=== PATIENT | female | born 2000 | race Caucasian/White ===

== ENCOUNTER 2021-12-01 16:58 | Emergency (ER) | payer OTHER, SELFPAY ==
[2021-12-01] VITALS (8 sets, daily range): BP systolic 105–112; BP diastolic 60–75; PULSE 68–88; RESP 17; TEMP 36.3; O2SAT 96–99; BMI 25.6
[2021-12-01 18:49] LABS: Add Manual Diff / Slide Review NO; Basophils Absolute Auto 100 /uL (0-100); Basophils Percent Auto 0.7 % (0-2); Eosinophils Absolute Auto 0 /uL (0-450); Eosinophils Percent Auto 0.4 % (2-4); Hematocrit 37.2 % (36-46); Hemoglobin 12.3 g/dL (12.0-16.0); Lymphocytes Absolute Auto 2200 /uL (1100-4500); Lymphocytes Percent Auto 25.6 % (25-40); Mean Corpuscular HGB Conc 33.2 % (30-36); Mean Corpuscular Hemoglobin 26.5 PG (26-34); Mean Corpuscular Volume 79.8 fL (80-100); Monocytes Absolute Auto 500 /uL (0-900); Monocytes Percent Auto 5.6 % (3-14); Neutrophils Absolute Auto 5800 /uL (1500-7000); Neutrophils Percent Auto 67.7 % (50-75); Platelet Count 288 X10^3/uL (150-400); Red Blood Cell Count 4.66 X10^6/uL (4.0-5.2); Red Cell Distribution Width 13.4 % (11.6-14.8); White Blood Cell Count 8.5 X10^3/uL (4.5-11.0)
[2021-12-01 19:06] LABS: BUN Creatinine Ratio 17.1 (6-22); Blood Urea Nitrogen 12 mg/dL (7-17); Calcium 8.8 mg/dL (8.4-10.2); Carbon Dioxide 21 mmol/L (22-32); Chloride 108 mmol/L (98-107); Estimated Glomerular Filt Rate > 60.0 mL/min (>60); Glucose 95 mg/dL (70-100); HEMOLYSIS < 15 (0-50); Potassium 3.7 mmol/L (3.4-5.1); Sodium 141 mmol/L (137-145)
--- NOTE | 2021-12-01 21:45 | PC.NURSE ---
Pt reports breakthrough bleeding with contraceptive implant, concerned about clots. Started feeling dizzy at approximately 1200 today.
--- NOTE | 2021-12-01 22:32 | PC.NURSE ---
Pt educated on indications for urine specimen r/t vaginal bleeding, pt declines providing specimen. Dr Cohen notified.
[2021-12-01 23:04] LABS: HCG Quantitative /Beta subunit < 2.4 mIU/mL
[2021-12-02] VITALS: PULSE 74; O2SAT 99
--- NOTE | 2021-12-02 00:03 | ED_ITS ---
HPI - General Adult General Chief complaint: Vaginal Bleeding Stated complaint: excessive bleeding, Vaginal Time Seen by Provider: 12/01/21 22:30 Source: patient Mode of arrival: Ambulatory History of Present Illness HPI narrative: 21-year-old with Nexplanon control implant in place for the last 6 years with appropriate replacement timing presents with vaginal bleeding. She started bleeding yesterday that seemed relatively heavy and then today was having have enough bleeding that she was noting quarter-size clots and bleeding through a maxi tampon in an hour. That level of bleeding has been waxing and waning through the day. She notes that she has not been eating or drinking because she simply did not get around to it today had a slight dizzy episode and her core minute requested that she come to the emergency room for further evaluation. She does note that she has had vaginal bleeding intermittently over the last 6 years sometimes moderately heavy with clots sometimes spotting for a month. She is due to have the Nexplanon exchanged in about 3 months. She describes no fevers, cough, chills no vaginal discharge no back pain or flank pain. Related Data Home Medications Medication Instructions Recorded Confirmed etonogestrel 68 mg subdermal 68 mg SUBDERMAL 12/01/21 implant (Nexplanon) Allergies Allergy/AdvReac Type Severity Reaction Status Date / Time No Known Drug Allergies Allergy Verified 12/01/21 17:14 Review of Systems Review of Systems Narrative: Remainder of complete review of systems is otherwise unremarkable except for that included in the HPI. Patient History Social History Smoking Status: Current every day smoker Smoking Status: Current every day smoker tobacco type: vaping alcohol intake frequency: other Substance Use Type: does not use Exam Initial Vital Signs Initial Vital Signs: Vital Signs Temperature 97.4 F L 12/01/21 17:12 Pulse Rate 88 12/01/21 17:12 Respiratory Rate 17 12/01/21 17:12 Blood Pressure 105/60 12/01/21 17:12 Pulse Oximetry 97 12/01/21 17:12 General: Healthy appearing, in no acute distress. Able to give a complete and coherent history. Well-nourished well-developed Respiratory: Lungs are clear to auscultation, no wheezing no rales no rhonchi. Full and symmetrical air movement Cardiac: Regular rate and rhythm no murmurs no bruits Abdomen: Soft, nontender, good bowel tones, no flank pain Skin: Warm and dry, no rashes Extremities: No trauma, well perfused Psych: Cooperative, appropriate insight and affect Bedside ultrasound Uterus is homogeneous measures 4 x 5 cm with endometrial lining as small as 0.2 cm and as thick as 0.7 cm with no obvious clots appreciated Course Orders Ordered: ED Orders 12/01/21 18:40 Basic Metabolic Panel Stat Complete Blood Count AUTO DIFF Stat HCG Quantitative /Beta subunit Stat Type and Screen Stat Vital Signs Vital signs: Vital Signs - 8 hr 12/01/21 17:12 12/01/21 20:33 12/01/21 20:34 Temperature 97.4 F L Pulse Rate 88 73 Respiratory Rate 17 Blood Pressure 105/60 112/75 Pulse Oximetry 97 99 99 12/01/21 21:00 12/01/21 21:30 12/01/21 22:00 Temperature Pulse Rate 74 85 68 Respiratory Rate Blood Pressure Pulse Oximetry 99 99 98 12/01/21 22:30 12/01/21 23:01 Temperature Pulse Rate 70 81 Respiratory Rate Blood Pressure Pulse Oximetry 99 96 Medical Decision Making Lab Data Result diagrams: 12/01/21 18:40 12/01/21 18:40 Labs: Lab Results 12/01/21 12/01/21 12/01/21 Range/Units 18:40 18:40 18:40 WBC 8.5 (4.5-11.0) X10^3/uL RBC 4.66 (4.0-5.2) X10^6/uL Hgb 12.3 (12.0-16.0) g/dL Hct 37.2 (36-46) % MCV 79.8 L (80-100) fL MCH 26.5 (26-34) PG MCHC 33.2 (30-36) % RDW 13.4 (11.6-14.8) % Plt Count 288 (150-400) X10^3/uL Neut % (Auto) 67.7 (50-75) % Lymph % (Auto) 25.6 (25-40) % [place] % (Auto) 5.6 (3-14) % Eos % (Auto) 0.4 L (2-4) % Baso % (Auto) 0.7 (0-2) % Neut # (Auto) 5800 (4880-2990) /uL Lymph # (Auto) 2200 (1990-0869) /uL [place] # (Auto) 500 (0-900) /uL Eos # (Auto) 0 (0-450) /uL Baso # (Auto) 100 (0-100) /uL Sodium 141 (137-145) mmol/L Potassium 3.7 (3.4-5.1) mmol/L Chloride 108 H (98-107) mmol/L Carbon Dioxide 21 L (22-32) mmol/L BUN 12 (7-17) mg/dL Creatinine 0.70 (0.52-1.04) mg/dL Estimated GFR > 60.0 (>60) mL/min BUN/Creatinine Ratio 17.1 (6-22) Glucose 95 (70-100) mg/dL Calcium 8.8 (8.4-10.2) mg/dL HCG, Quant mIU/mL Blood Type O Positive Antibody Screen Negative 12/01/21 Range/Units 18:40 WBC (4.5-11.0) X10^3/uL RBC (4.0-5.2) X10^6/uL Hgb (12.0-16.0) g/dL Hct (36-46) % MCV (80-100) fL MCH (26-34) PG MCHC (30-36) % RDW (11.6-14.8) % Plt Count (150-400) X10^3/uL Neut % (Auto) (50-75) % Lymph % (Auto) (25-40) % [place] % (Auto) (3-14) % Eos % (Auto) (2-4) % Baso % (Auto) (0-2) % Neut # (Auto) (8616-1779) /uL Lymph # (Auto) (8502-5107) /uL [place] # (Auto) (0-900) /uL Eos # (Auto) (0-450) /uL Baso # (Auto) (0-100) /uL Sodium (137-145) mmol/L Potassium (3.4-5.1) mmol/L Chloride (98-107) mmol/L Carbon Dioxide (22-32) mmol/L BUN (7-17) mg/dL Creatinine (0.52-1.04) mg/dL Estimated GFR (>60) mL/min BUN/Creatinine Ratio (6-22) Glucose (70-100) mg/dL Calcium (8.4-10.2) mg/dL HCG, Quant < 2.4 mIU/mL Blood Type Antibody Screen MDM Narrative Medical decision making narrative: 21-year-old woman with vaginal bleeding with a Nexplanon implant in place. She is not , not orthostatic and bedside ultrasound does not suggest significant uterine pathology. I suspect that this is simply withdrawal bleed ing in setting of mild dehydration and being hungry. Reassurance is given. I do not think that additional workup is required. I did suggest that she talk with her doctor with the next time the Nexplanon needs to be replaced to see if she is still having bleeding indications and to see if there is any additional indication for formal transvaginal uterine ultrasound. All of this is reviewed with her in detail. She is safe for home discharge Discharge Plan Departure Patient Disposition: Home Clinical Impression: Vaginal bleeding Instructions: DI for Vaginal Bleeding Activity Restrictions/Additional Instructions: Thank you for coming in today and for being so patient with your long wait Your blood work was very reassuring, you are not significantly anemic, meaning your body is keeping up with the blood your losing. You are not so this is not a complication causing your bleeding. There is no sign of infection. With the bedside ultrasound we did in the emergency department, your uterus looks like it is a very normal shape and size with the lining of the uterus also quite normal. I suspect that your having withdrawal bleeding. When you have been on hormones as long as you have been the lining of your uterus can build up and then simply sloughed off. Sometimes she can have spotting for month and sometimes it is heavy bleeding for a couple of days and sometimes it is both. At this time everything looks okay and I suspect that this bleeding will slow down over the next day or 2. You may still have spotting for a couple days after. Please do follow-up with your primary care doctor to talk about the vaginal bleeding and appropriate replacement of your Nexplanon when it is due. I wish you the best Prescriptions: No Action Nexplanon 68 mg Implant 68 mg SUBDERMAL 0RF Stand Alone Forms: Work Release Note
== END 2021-12-02 00:15 | disposition home or self-care (01) ==
PROVIDERS: Emergency Medicine; Emergency Provider Emergency Medicine
DX: N93.9 Abnormal uterine and vaginal bleeding, unspecified (principal)
CPT/HCPCS: 80048; 84702; 85025; 86850; 86900; 86901; 99281; 99283